=== PATIENT | female | born 1985 | race Caucasian/White ===

== ENCOUNTER 2019-09-12 23:17 | Emergency (ER) | payer SELFPAY ==
[~2019-09-12] VITALS: Ht 165.1 cm; Wt 65.8 kg
[2019-09-12 23:28] VITALS: BP_SYST 148
--- NOTE | 2019-09-12 23:34 | NUR ---
Patient triaged and placed in waiting room. VSS and patient appears in no acute distress at this time. Accompanied by fiance, awaiting available bed, and MD notified of need for MSE.
--- NOTE | 2019-09-13 01:45 | NUR ---
PT AMBULATORY TO BED 4 FOR EVALUATION
--- NOTE | 2019-09-13 02:00 | NUR ---
ER at bedside examining patient.
[2019-09-13] MEDS ORDERED: LevALBUTEROL HCL 1.25 MG/0.5 ML *CONC.* VIAL.NEB (XOPENEX CONC.) INH ONE ×2 (02:15→03:45)
[2019-09-13] MEDS ORDERED: PROMETHAZINE-DM 6.25 MG-15 MG/5 ML UDC PO ONE (03:45)
[2019-09-13] MEDS ORDERED: IBUPROFEN 600 MG TABLET PO ONE (03:45)
[2019-09-13 04:00] VITALS: BP_SYST 136
--- NOTE | 2019-09-13 04:00 | NUR ---
Patient given written and verbal discharge instructions and verbalizes understanding. ER MD discussed with patient the results and treatment provided. Patient in stable condition. ID arm band removed. Rx of Ibuprofen, Albuterol and Tessalon Perles given. Patient educated on pain management and to follow up with PMD. Pain Scale 0/10 Opportunity for questions provided and answered. Medication side effect fact sheet provided.
== END 2019-09-13 04:00 | disposition home or self-care (01) ==
LOC: SED 23:17
DX: J98.01 Acute bronchospasm (principal); B34.9 Viral infection, unspecified
CPT/HCPCS: 71045; 94640; 99284; J7612